=== PATIENT | female | born 1985 ===

== ENCOUNTER 2021-03-02 17:18 | Emergency (ER) | payer SELFPAY ==
[2021-03-02 18:15] VITALS: BP 118/72
--- NOTE | 2021-03-02 19:21 | Emergency Department Report ---
ED General Adult HPI - General Chief complaint: Upper Respiratory Infection Stated complaint: SOB X MONTHS/MUCUS Time Seen by Provider: 03/02/21 18:29 Source: patient Mode of arrival: Ambulatory Limitations: No Limitations - History of Present Illness Initial comments: 35-year-old -[place] female patient presents with complaints of cough, congestion, nausea, and diarrhea x4 days. She states that she feels short of breath with coughing only. She admits to loss of taste and smell, however she has not had any COVID-19 testing performed. She denies receiving a COVID-19 vaccination. No melena/hematochezia per patient. Patient very agitated and refusing to answer further questions. Patient is upset due to not being able to receive a COVID-19 test here in the ED today. - Related Data Previous Rx's Medication Instructions Recorded Last Taken Type Benzonatate 200 mg PO TID PRN #30 capsule 03/02/21 Unknown Rx Loratadine [Claritin] 10 mg PO QDAY PRN #10 tablet 03/02/21 Unknown Rx Allergies Allergy/AdvReac Type Severity Reaction Status Date / Time No Known Allergies Allergy Verified 03/02/21 18:15 ED Review of Systems ROS: Stated complaint: SOB X MONTHS/MUCUS Other details as noted in HPI Constitutional: chills, fever (Tactile), malaise, weakness ENT: denies: throat pain Respiratory: cough Cardiovascular: chest pain (With coughing only per patient) Gastrointestinal: nausea, diarrhea. denies: vomiting Skin: denies: change in color Neurological: denies: headache ED Past Medical Hx - Medications Home Medications: Home Medications Medication Instructions Recorded Confirmed Last Taken Type Benzonatate 200 mg PO TID PRN #30 capsule 03/02/21 Unknown Rx Loratadine [Claritin] 10 mg PO QDAY PRN #10 tablet 03/02/21 Unknown Rx ED Physical Exam - General Limitations: No Limitations General appearance: alert, in no apparent distress - Head Head exam: Present: atraumatic, normocephalic - Eye Eye exam: Present: normal appearance. Absent: scleral icterus - Respiratory Respiratory exam: Present: normal lung sounds bilaterally. Absent: respiratory distress - Cardiovascular Cardiovascular Exam: Present: regular rate, normal rhythm - GI/Abdominal GI/Abdominal exam: Absent: other ( due to patient agitation) - Neurological Exam Neurological exam: Present: alert, oriented X3, normal gait - Psychiatric Psychiatric exam: Present: normal affect, agitated - Skin Skin exam: Present: warm, dry, intact, normal color. Absent: cyanosis, diaphoretic ED Course Vital Signs 03/02/21 18:13 Temperature 99.9 F H Pulse Rate 98 H Respiratory 18 Rate Blood Pressure 118/72 [Left] O2 Sat by Pulse 100 Oximetry ED Medical Decision Making - Radiology Data Radiology results: report reviewed CHEST 2 VIEWS INDICATION / CLINICAL INFORMATION: cough, PUI. COMPARISON: None available. FINDINGS: SUPPORT DEVICES: None. HEART / MEDIASTINUM: No significant abnormality. LUNGS / PLEURA: No significant pulmonary or pleural abnormality. No pneumothorax. ADDITIONAL FINDINGS: No significant additional findings. IMPRESSION: 1. No acute findings. - Medical Decision Making 35-year-old -[place] female patient presents with complaints of cough, congestion, nausea, and diarrhea x4 days. She states that she feels short of breath with coughing only. She admits to loss of taste and smell, however she has not had any COVID-19 testing performed. She denies receiving a COVID-19 vaccination. No melena/hematochezia per patient. Patient very agitated and refusing to answer further questions. Patient is upset due to not being able to receive a COVID-19 test here in the ED today. Lungs are clear to auscultation bilaterally on exam and heart rate is normal. Chest x-ray is negative for any acute abnormalities. Vitals are within normal limits. History is consistent with COVID-19. Recommend outpatient COVID-19 testing. Patient also informed to self quarantine until her results are back. Strict return precautions were discussed with patient. She is well-appearing and stable for discharge home. Critical care attestation.: If time is entered above; I have spent that time in minutes in the direct care o f this critically ill patient, excluding procedure time. ED Disposition Clinical Impression: Suspected COVID-19 virus infection Disposition: HOME / SELF CARE / HOMELESS Is pt being admited?: No Condition: Stable Instructions: COVID-19, Prevent the Spread of COVID-19 if You Are Sick - [facility] Additional Instructions: There are no abnormalities or infection noted on your chest x-ray today. Your symptoms are likely consistent with COVID-19 infection. I recommend you take vitamin C and zinc, drink plenty of water, and rest. You will need to self quarantine until you are able to get COVID-19 testing performed. If your test results are positive, you will need to quarantine again for 14 days. If you develop trouble breathing, coughing up blood, chest pain, or any other concerning symptoms, seek immediate emergency treatment. Otherwise he may follow-up with a primary care provider. Prescriptions: Benzonatate 200 mg PO TID PRN #30 capsule PRN Reason: Cough Loratadine [Claritin] 10 mg PO QDAY PRN #10 tablet PRN Reason: Congestion Referrals: [facility] [Provider Group] - 3-5 Days
--- NOTE | 2021-03-02 20:27 | XRay Report ---
CHEST 2 VIEWS INDICATION / CLINICAL INFORMATION: cough, PUI. COMPARISON: None available. FINDINGS: SUPPORT DEVICES: None. HEART / MEDIASTINUM: No significant abnormality. LUNGS / PLEURA: No significant pulmonary or pleural abnormality. No pneumothorax. ADDITIONAL FINDINGS: No significant additional findings. IMPRESSION: 1. No acute findings. Signer Name: Fidel Donald MD Signed: 03/02/2021 8:23 PM Workstation Name: [id number]
== END 2021-03-02 20:30 | disposition home or self-care (01) ==
LOC: ED 17:18
DX: R05.9 Cough, unspecified (principal); Z20.822 Contact with and (suspected) exposure to COVID-19; R06.02 Shortness of breath; R19.7 Diarrhea, unspecified; R09.89 Other specified symptoms and signs involving the circulatory and respiratory systems
CPT/HCPCS: 71046; 99283